=== PATIENT | male | born 1960 | race Caucasian/White ===

== ENCOUNTER 2023-05-09 11:10 | Emergency (ER) | payer OTHER, SELFPAY ==
--- NOTE | ~2023-05-09 | XR_ITS ---
XR foot RT min 3V DATE: 05/09/2023 11:56 INDICATION: Anterior swelling, pain TECHNIQUE: 4 views COMPARISON: None FINDINGS: There is approximately one cortical width lateral displacement of a transverse mildly commi nuted fracture of the proximal to mid shaft of the second metatarsal bone. Mild osteoarthritis at the first metatarsophalangeal joint. Mild plantar calcaneal enthesopathy. IMPRESSION: Second metatarsal shaft fracture Reviewed, dictated and finalized at location A.
[2023-05-09 11:12] VITALS: BP 181/67; PULSE 87; RESP 16; TEMP 36.9; O2SAT 98
--- NOTE | 2023-05-09 11:21 | ED.EXTPRO ---
HPI - Extremity Problem General Chief complaint: Extremity Problem,Nontraumatic <Antonia Marino MD - Last Filed: 05/09/23 12:30> Stated complaint: R FOOT SWELLING X4D <Antonia Marino MD - Last Filed: 05/09/23 12:30> Time Seen by Provider: 05/09/23 11:21 <Antonia Marino MD - Last Filed: 05/09/23 12:30> Source: patient <Antonia Marino MD - Last Filed: 05/09/23 12:30> History of Present Illness HPI Narrative: Patient is 62 years old white male came to the emergency room because of pain and swelling of the dorsal side of the right foot started 4 to 5 days ago. Patient denies any trauma. History of weakness of the right lower extremity for 30 years, patient is disabled because of it, unknown diagnosis. Patient denies any fever, chills, nausea, vomiting, history of diabetes <Antonia Marino MD - Last Filed: 05/09/23 12:30> Patient is 62 years old white male came to the emergency room because of pain and swelling of the dorsum of the right foot started 4 to 5 days ago. Patient denies any trauma. History of weakness of the right lower extremity for 30 years, patient is disabled because of it, unknown diagnosis. Patient denies any fever, chills, nausea, vomiting, history of diabetes <Natasha Crawford PA-C - Last Filed: 05/09/23 18:10> Related Data Allergies/Adverse reactions: Allergies Allergy/AdvReac Type Severity Reaction Status Date / Time No Known Allergies Allergy Verified 05/09/23 11:12 <Antonia Marino MD - Last Filed: 05/09/23 12:30> Review of Systems Review of Systems: All systems reviewed & are unremarkable except as noted in HPI and below <Antonia Marino MD - Last Filed: 05/09/23 12:30> Exam Narrative: General appearance: Well-developed, well-nourished Skin: Normal color Backspace Chest and respiratory: Airway patent, no respiratory distress, no accessory muscle use Heart: Regular rate/rhythm Abdomen: Soft, nontender, no organomegaly, quiet bowel sounds Vascular: Normal peripheral pulses, normal capillary refill. Musculoskeletal: Right foot showed dorsal redness, slightly swelling, diffuse tenderness, no deformity. Right lower extremity is shortened and weaker compared to the left 1 Neurologic: Alert and oriented ?3,. <Antonia Marino MD - Last Filed: 05/09/23 12:30> Course Vital Signs Vital signs: Vital Signs Temperature 98.5 F 05/09/23 11:12 Pulse Rate 87 05/09/23 11:12 Respiratory Rate 16 05/09/23 11:12 Blood Pressure 181/67 H 05/09/23 11:12 Pulse Oximetry 98 05/09/23 11:12 Oxygen Delivery Room Air 05/09/23 11:12 Temperature 98.5 F 05/09/23 11:12 Pulse Rate 87 05/09/23 11:12 Respiratory Rate 16 05/09/23 11:12 Blood Pressure 181/67 H 05/09/23 11:12 Pulse Oximetry 98 05/09/23 11:12 Oxygen Delivery Room Air 05/09/23 11:12 <Antonia Marino MD - Last Filed: 05/09/23 12:30> Vital Signs Temperature 98.5 F 05/09/23 11:12 Pulse Rate 87 05/09/23 11:12 Respiratory Rate 16 05/09/23 11:12 Blood Pressure 181/67 H 05/09/23 11:12 Pulse Oximetry 98 05/09/23 11:12 Oxygen Delivery Room Air 05/09/23 11:12 Temperature 98.5 F 05/09/23 11:12 Pulse Rate 87 05/09/23 11:12 Respiratory Rate 16 05/09/23 11:12 Blood Pressure 181/67 H 05/09/23 11:12 Pulse Oximetry 98 05/09/23 11:12 Oxygen Delivery Room Air 05/09/23 11:12 <Natasha Crawford PA-C - Last Filed: 05/09/23 18:10> MDM - Extremity (Nontraumatic) MDM Narrative Medical decision making narrative: Patient presents with nontraumatic pain of the right foot, physical examination showed diffuse tenderness and swelling dorsally, no deformity, x-ra
[2023-05-09] MEDS: IBUPROFEN 600 MG TABLET PO (11:57)
[2023-05-09] MEDS: HYDROcodone/acetaminophen (*CRX) 5-325 MG TABLET 1 TAB PO (11:58)
== END 2023-05-09 12:29 | disposition home or self-care (01) ==
PROVIDERS: Emergency Provider Emergency Medicine; PCP Internal Medicine
DX: S92.321A Displaced fracture of second metatarsal bone, right foot, initial encounter for closed fracture (principal); X58.XXXA Exposure to other specified factors, initial encounter
CPT/HCPCS: 73630; 99284; A9270